=== PATIENT | female | born 1995 | race Caucasian/White ===

== ENCOUNTER 2018-02-08 16:06 | Emergency (ER) | payer OTHER ==
[~2018-02-08] VITALS: Ht 157.5 cm; Wt 54.4 kg
== END 2018-02-08 19:03 | disposition home or self-care (01) ==
LOC: ER 16:06
DX: S81.052A Open bite, left knee, initial encounter (principal); S71.152A Open bite, left thigh, initial encounter; W54.0XXA Bitten by dog, initial encounter; Y93.01 Activity, walking, marching and hiking; Y92.832 Beach as the place of occurrence of the external cause; Y99.8 Other external cause status